=== PATIENT | male | born 1985 | race Caucasian/White ===

== ENCOUNTER 2017-03-24 16:32 | Emergency (ER) | payer SELFPAY ==
[~2017-03-24] VITALS: Ht 172.7 cm; Wt 88.8 kg
[2017-03-24 16:47] VITALS: BP 141/80; PULSE 118; RESP 16; TEMP 98.6; O2SAT 97
[2017-03-24] MEDS ORDERED: MORPHINE SULFATE 8 MG/ML INJ IM ONE (17:00)
[2017-03-24] MEDS ORDERED: MOTR200T4 PO (17:03)
--- NOTE | 2017-03-24 17:05 | PD ---
HPI Chief Complaint: Musculoskeletal Complaint Time Seen by Provider: 16:51 Travel History International Travel<30 days: No Contact w/Intl Traveler<30days: No Traveled to known affect area: No History of Present Illness HPI 31-year-old male here for evaluation of left shoulder pain/injury. About 1.5 hours prior to arrival the patient was doing tree work. He states he was on a ladder at a height of approximately 8 feet when he slipped and grabbed onto a palm tree with his left arm. He states that his arm was stretched out, and then he fell landing onto his left shoulder. He denies head injury or LOC. He is not complaining of 8 out of 10 pain in his left shoulder which is constant, worse with movements and palpation. He is also having a tingling sensation in his left hand. Patient feels as though his left bicep feels tight. He denies any other injuries. No head neck or back pain. No pain in any other joint or extremity. He is right-handed. [facility] Social History Tobacco Use: Yes Allergies-Medications (Allergen,Severity, Reaction): Coded Allergies: No Known Allergies (Unverified , 03/24/17) Reported Meds & Prescriptions Reported Meds & Active Scripts Active Robaxin (Methocarbamol) 500 Mg Tab 500 Mg PO QID Lortab (Hydrocodone-Acetaminophen) 5-325 Mg Tab 1 Tab PO Q6H PRN Reported Motrin Ib (Ibuprofen) 200 Mg Tab 800 Mg PO Q6H PRN Review of Systems Except as stated in HPI: all other systems reviewed are Neg Physical Exam Narrative GENERAL: Well-developed, well-nourished, pleasant, awake, alert, GCS 15, no acute distress. SKIN: Focused skin assessment warm/dry. Tattoos throughout body. No lacerations, abrasions, or ecchymosis. HEAD: Atraumatic. Normocephalic. EYES: Pupils equal and round. No scleral icterus. No injection or drainage. ENT: Mucous membranes pink and moist. NECK: Trachea midline. No JVD. CARDIOVASCULAR: Regular rate and rhythm. Bilateral distal radial pulses are brisk and equal. RESPIRATORY: No accessory muscle use. Clear to auscultation. Breath sounds equal bilaterally. GASTROINTESTINAL: Abdomen soft, non-tender, nondistended. MUSCULOSKELETAL: Left shoulder with moderate edema with diffuse tenderness. Left clavicle is also tender without obvious step-off. Left scapular area is also tender without obvious deformity. Left bicep muscle appears to be flexed with moderate tenderness. No tenderness and left elbow, forearm, or hand. Normal range of motion in left hand. All compartments in left upper extremity are supple. NEUROLOGICAL: Awake and alert. No obvious cranial nerve deficits. Motor grossly within normal limits. Normal speech. Sensation intact in left axillary nerve distribution as well as in left hand. PSYCHIATRIC: Appropriate mood and affect; insight and judgment normal. Data Data Last Documented VS Vital Signs Date Time Temp Pulse Resp B/P Pulse Ox O2 Delivery O2 Flow Rate FiO2 03/24/17 18:02 99 16 125/86 96 Room Air 03/24/17 16:47 98.6 Orders Morphine Inj (Morphine Inj) (03/24/17 17:00) Humerus (Min 2vws) (03/24/17 ) Scapula (03/24/17 ) Chest, Single Ap (03/24/17 ) Shoulder, Limited(2vws) (03/24/17 ) Sling And Swathe (03/24/17 ) Ibuprofen (Motrin) (03/24/17 18:00) Sling And Swathe (03/24/17 ) MDM Medical Decision Making Medical Screen Exam Complete: Yes Emergency Medical Condition: Yes Differential Diagnosis Left shoulder fracture, left shoulder dislocation, left proximal humerus fracture, left clavicular fracture, left scapular fracture, shoulder contusion Narrative Course Chest x-ray shows no acute disease. Left humerus x-ray read as unremarkable exam. Limited left shoulder x-ray read as unremarkable exam. Left scapular x-ray read as unremarkable exam of the left scapula. Patient was made aware of all findings. He is able to abduct the left shoulder to about 90, however this is very painful for him. Full range of passive motion in the left shoulder. There could be some tendon injury and the shoulder , however at this point I believe the patient can follow-up with this as an outpatient. Patient again was reexamined and there are no other injuries. No neck pain or vertebral tenderness. He will be placed in a sling and swath and discharged home with pain medication and orthopedic follow-up. He was instructed to take his shoulder out of the sling every few hours and moving around to prevent a frozen shoulder. He was informed on when to return to the emergency department. He verbalizes understanding and agreement with plan. Diagnosis Primary Impression: Injury of left shoulder Qualified Code: S49.92XA - Injury of left shoulder, initial encounter Referrals: Jean-Paul Rolon MD 1 week Orthopedist Additional Instructions: Follow-up with a primary care physician this week. Follow-up with orthopedic surgeon Dr. Rolon or an orthopedist of your choice this week. Return to the emergency department for worsening symptoms or any other concerns. Scripts Methocarbamol (Robaxin)500 Mg [id number] Mg PO QID #20 TAB Ref 0 Prov:Tunde Cisneros MD 03/24/17 Hydrocodone-Acetaminophen (Lortab)5-325 Mg Tab1 Tab PO Q6H PRN (PAIN) #20 TAB Ref 0 Prov:Tunde Cisneros MD 03/24/17 Disposition: 01 DISCHARGE HOME Condition: Stable Tunde Cisneros MD March 24, 2017 17:05
--- NOTE | 2017-03-24 17:35 | RADHPO ---
EXAM DATE/TIME: 03/24/2017 17:14 [facility] COMPARISON: No previous studies available for comparison. INDICATIONS : Fell off ladder while trimming trees, left shoulder pain. MEDICAL HISTORY : None. SURGICAL HISTORY : None. ENCOUNTER: Initial ACUITY: 1 day PAIN SCORE: 8/10 LOCATION: Left shoulder FINDINGS: Two view examination of the left shoulder demonstrates no evidence of fracture or dislocation. The g lenohumeral and acromioclavicular joints are maintained. Bony mineralization is normal. CONCLUSION: Unremarkable limited examination of the left shoulder. Ludwin Fox MD on March 24, 2017 at 17:33 Board Certified Radiologist. This report was verified electronically.
--- NOTE | 2017-03-24 17:35 | RADHPO ---
EXAM DATE/TIME: 03/24/2017 17:11 [facility] COMPARISON: No previous studies available for comparison. INDICATIONS : Fall off ladder trimming trees, chest pain. MEDICAL HISTORY : None. SURGICAL HISTORY : None. ENCOUNTER: Initial ACUITY: 1 day PAIN SCORE: 12/03 LOCATION: Bilateral chest FINDINGS: A single view of the chest demonstrates the lungs to be symmetrically aerated without evidence of mas s, infiltrate or effusion. The cardiomediastinal contours are unremarkable. Osseous structures are intact. CONCLUSION: No acute disease. Ludwin Fox MD on March 24, 2017 at 17:32 Board Certified Radiologist. This report was verified electronically.
--- NOTE | 2017-03-24 17:36 | RADHPO ---
EXAM DATE/TIME: 03/24/2017 17:16 [facility] COMPARISON: No previous studies available for comparison. INDICATIONS : Fell off ladder while trimming trees, left shoulder pain. MEDICAL HISTORY : None. SURGICAL HISTORY : None. ENCOUNTER: Initial ACUITY: 1 day PAIN SCORE: 8/10 LOCATION: Left shoulder FINDINGS: Two view examination of the left scapula demonstrates no evidence of fracture. The glenohumeral and acromioclavicular joints are maintained. Bony mineralization is normal. CONCLUSION: Unremarkable examination of the left scapula. Ludwin Fox MD on March 24, 2017 at 17:34 Board Certified Radiologist. This report was verified electronically.
--- NOTE | 2017-03-24 17:39 | RADHPO ---
EXAM DATE/TIME: 03/24/2017 17:22 [facility] COMPARISON: No previous studies available for comparison. INDICATIONS : Fell off ladder while trimming trees, left shoulder pain. MEDICAL HISTORY : None. SURGICAL HISTORY : None. ENCOUNTER: Initial ACUITY: 1 day PAIN SCORE: 8/10 LOCATION: Left shoulder FINDINGS: Two view examination of the left humerus demonstrates no evidence of fracture or dislocation. Bony m ineralization is normal. The soft tissue structures are intact. CONCLUSION: Unremarkable examination of the left humerus. Ludwin Fox MD on March 24, 2017 at 17:36 Board Certified Radiologist. This report was verified electronically.
[2017-03-24] MEDS ORDERED: HYDR-3533 PO (17:53)
[2017-03-24] MEDS ORDERED: ROBA500T PO (17:53)
[2017-03-24] MEDS ORDERED: IBUPROFEN 800 MG TAB PO ONE (18:00)
[2017-03-24 18:02] VITALS: BP 125/86; PULSE 99; RESP 16; O2SAT 96
== END 2017-03-24 18:08 | disposition home or self-care (01) ==
LOC: PHED 16:32
DX: S49.92XA Unspecified injury of left shoulder and upper arm, initial encounter (principal); W11.XXXA Fall on and from ladder, initial encounter; Y93.H2 Activity, gardening and landscaping
CPT/HCPCS: 29240; 71010; 73010; 73030; 73060; 96372; 99283; J2270